=== PATIENT | female | born 1965 | race Caucasian/White ===

== ENCOUNTER 2024-11-08 07:31 | Day surgery (SDC) | payer OTHER ==
[~2024-11-08] VITALS: Ht 162.6 cm; Wt 63.6 kg
[~2024-11-08 07:31] MED LIST: AZEL137S8 NASAL; FLUT16H NASAL; LISI10TA24 PO; METO-408 PO; PANT40TA54 PO; ROSU20TA98 PO; SODIUM CHLORIDE 0.9% 1,000 ML ONE
[2024-11-08] MEDS: SODIUM CHLORIDE 0.9% 1,000 ML IV ONE (08:21)
[2024-11-08] MEDS ORDERED: LIDOCAINE/PF 2% 5 ML VIAL ONE (12:00)
[2024-11-08] MEDS ORDERED: PROPOFOL 1% 20 ML VIAL IVP ONE (12:00)
[2024-11-08] MEDS ORDERED: OXYGEN THERAPY IH SCH (20:00)
== END 2024-11-08 10:40 | disposition home or self-care (01) ==
LOC: SURGERY 07:31
PROVIDERS: ATTEND Specialist
DX: K21.9 Gastro-esophageal reflux disease without esophagitis (principal); K31.7 Polyp of stomach and duodenum; K76.0 Fatty (change of) liver, not elsewhere classified; I10 Essential (primary) hypertension; Z98.890 Other specified postprocedural states; Z90.710 Acquired absence of both cervix and uterus; Z79.899 Other long term (current) drug therapy
CPT/HCPCS: 43239; 88305; C1769; J2704; J3490; J7030

== ENCOUNTER 2024-12-19 11:25 | Emergency (ER) | payer OTHER ==
[~2024-12-19] VITALS: Ht 162.6 cm; Wt 63.6 kg
[~2024-12-19 11:25] MED LIST changes: -ALPR-707 PO; -LORA1TAB25 PO; -SERT-158 PO
[2024-12-19 11:37] VITALS: BP 132/96; PULSE 80; RESP 18; TEMP 98.5; O2SAT 98
[2024-12-19] MEDS ORDERED: ALPR-707 PO (11:37)
[2024-12-19] MEDS ORDERED: SERT-158 PO (11:37)
[2024-12-19 12:05] LABS: PLATELET COUNT (AUTO) 383 K/uL (150-450); RED BLOOD CELL COUNT(AUTO) 5.44 MIL/uL (4.00-5.20); RED CELL DISTRIBUTION WIDTH 13.1 % (11.5-14.5); WHITE BLOOD COUNT (AUTO) 10.3 K/uL (4.5-11.0)
[2024-12-19 12:14] LABS: CALCIUM, TOTAL 9.7 mg/dL (8.8-10.5); CREATININE 0.75 mg/dL (0.60-1.30); GLOMERULAR FILTR. RATE CALC > 60 mL/min (>60); GLUCOSE,RANDOM 103 mg/dL (70-110); SODIUM SERUM 135 mmol/L (136-145); UREA NITROGEN, BLOOD 14 mg/dL (7-18)
[2024-12-19 12:57] LABS: TROPONIN I-HIGH SENSITIVITY Less Than 4 ng/L (<51)
[2024-12-19] MEDS ORDERED: LORA1TAB25 PO (14:12)
== END 2024-12-19 14:45 | disposition home or self-care (01) ==
LOC: EMS 11:57
DX: F41.9 Anxiety disorder, unspecified (principal); I10 Essential (primary) hypertension; J45.909 Unspecified asthma, uncomplicated; Z79.899 Other long term (current) drug therapy
CPT/HCPCS: 80048; 84484; 85025; 93005; 99284

== ENCOUNTER → 2024-12-19 | Outpatient (CLI) | payer OTHER ==
[~2024-12-19] MED LIST changes: +ALPR-707 PO; +LORA1TAB25 PO; +SERT-158 PO; -SODIUM CHLORIDE 0.9% 1,000 ML ONE
[2024-12-19 11:29] LABS: PLATELET COUNT (AUTO) 356 K/uL (150-450); RED BLOOD CELL COUNT(AUTO) 5.41 MIL/uL (4.00-5.20); RED CELL DISTRIBUTION WIDTH 13.0 % (11.5-14.5); WHITE BLOOD COUNT (AUTO) 10.5 K/uL (4.5-11.0)
[2024-12-19 12:28] LABS: ASPARTATE AMINOTRANSFERASE 17 U/L (15-37); CALCIUM, TOTAL 9.9 mg/dL (8.8-10.5); CREATININE 0.67 mg/dL (0.60-1.30); GLOMERULAR FILTR. RATE CALC > 60 mL/min (>60); GLUCOSE,RANDOM 117 mg/dL (70-110); SODIUM SERUM 138 mmol/L (136-145); TOTAL PROTEIN, SERUM 8.1 g/dL (6.4-8.2); UREA NITROGEN, BLOOD 14 mg/dL (7-18)
[2024-12-19 12:29] LABS: CHOL/HDL RATIO 2.0 (3.9-5.7); LDL CHOL (CALC.) 62 mg/dL (0-130)
== END | disposition home or self-care (01) ==
LOC: LABMN 11:04
PROVIDERS: ATTEND Internal Medicine Geriatric Medicine
DX: R00.2 Palpitations (principal)
CPT/HCPCS: 80053; 80061; 83036; 84439; 84443; 84480; 85025